=== PATIENT | male | born 1985 | race African-American/Black ===

== ENCOUNTER 2018-10-19 17:30 | Emergency (ER) | payer MEDICAID, MEDICARE ==
[~2018-10-19] VITALS: Ht 188 cm; Wt 81.6 kg
[2018-10-19 19:06] LABS: Basophils # (auto) 0.1 uL; Basophils % (auto) 1.1 % (0.0-2.0); Eosinophils # (auto) 0 uL; Eosinophils % (auto) 0.6 % (0.0-7.0); Hematocrit 48.3 % (41.0-53.0); Lymphocytes # (auto) 1.9 uL; Lymphocytes % (auto) 27.4 % (10.0-50.0); Mean Corpuscular Hemoglobin 29.2 pg (28.0-32.0); Mean Corpuscular Hgb Conc. 33.2 g/dL (32.0-36.0); Mean Corpuscular Volume 87.9 fL (80.0-100.0); Monocytes # (auto) 0.4 uL; Monocytes % (auto) 5.8 % (0.0-12.0); Neutrophils # (auto) 4.5 uL; Neutrophils % (auto) 65.1 % (37.0-80.0); Platelet Count (auto) 210 10^3/uL (140-450); White Blood Cell 6.9 10^3/uL (4.4-10.8)
[2018-10-19 19:19] LABS: Alanine Aminotransferase 13 U/L (16-61); Anion Gap 6 (5-15); Aspartate Aminotransferase 8 U/L (15-37); BUN/Creatinine Ratio 10.8; Blood Urea Nitrogen 15 mg/dL (7-18); Calcium 8.8 mg/dL (8.5-10.1); Carbon Dioxide 27 mmol/L (21-32); Chloride 109 mmol/L (98-107); GFR African American 75 mL/min; GFR Non-African American 62 mL/min; Glucose 92 mg/dL (74-106); Potassium 3.7 mmol/L (3.5-5.1); Sodium 142 mmol/L (136-145)
[2018-10-19 19:24] LABS: Alkaline Phosphatase 58 U/L (45-117); Bilirubin, Total 0.6 mg/dL (0.2-1.0); Total Protein 7.8 g/dL (6.4-8.2)
[2018-10-19 19:46] VITALS: BP 125/75
== END 2018-10-19 19:59 | disposition home or self-care (01) ==
LOC: ER 17:30 → EDBD 17:30 → ER 19:58
DX: K59.01 Slow transit constipation (principal)
CPT/HCPCS: 36415; 74176; 80053; 84484; 85025

== ENCOUNTER 2022-03-09 06:29 | Inpatient (IN) | payer MEDICARE, MEDICAID ==
[~2022-03-09] VITALS: Ht 195.6 cm; Wt 77.3 kg
[2022-03-09 07:43] LABS: Basophils # (auto) 0 10 ^3/uL (0-0.2); Basophils % (auto) 0.5 % (0.0-2.0); Eosinophils # (auto) 0.1 10 ^3/uL (0-0.8); Eosinophils % (auto) 0.8 % (0.0-7.0); Hematocrit 43.7 % (41.0-53.0); Hemoglobin 14.7 g/dL (13.5-17.5); Lymphocytes # (auto) 2.7 10 ^3/uL (0.4-5.4); Lymphocytes % (auto) 36.9 % (10.0-50.0); Mean Corpuscular Hemoglobin 30.4 pg (28.0-32.0); Mean Corpuscular Hgb Conc. 33.8 g/dL (32.0-36.0); Mean Corpuscular Volume 89.9 fL (80.0-100.0); Monocytes # (auto) 0.5 10 ^3/uL (0-1.3); Monocytes % (auto) 6.4 % (0.0-12.0); Neutrophils # (auto) 4.1 10 ^3/uL (1.6-8.6); Neutrophils % (auto) 55.4 % (37.0-80.0); Nucleated Red Blood Cells % 0.1 %; Red Blood Cells 4.86 10^6/uL (4.5-5.90); Red Cell Distribution Width 14.6 % (11.8-14.3); White Blood Cell 7.3 10^3/uL (4.4-10.8)
[2022-03-09] MEDS ORDERED: FUROSEMIDE 40 MG/4 ML VIAL IV ONE (07:45)
[2022-03-09 08:03] LABS: Albumin 3.9 g/dL (3.4-5.0); Potassium 3.5 mmol/L (3.5-5.1)
[2022-03-09 08:08] VITALS: BP 106/66
[2022-03-09 08:15] LABS: Bilirubin, Total 0.6 mg/dL (0.2-1.0); Total Protein 7.2 g/dL (6.4-8.2)
[2022-03-09 08:42] LABS: Urine Bacteria NONE SEEN /hpf (None Seen); Urine Blood Negative /uL (Negative); Urine Mucus FEW (None Seen); Urine Specific Gravity 1.047 (1.001-1.035); Urine WBC 6 /hpf (0 - 3)
[2022-03-09] MEDS ORDERED: ENOXAPARIN SOD 80 MG/0.8ML SYRINGE SC ONE (09:15)
[2022-03-09] MEDS ORDERED: ATOR40TA52 PO (12:44)
[2022-03-09] MEDS ORDERED: METO25TA93 PO (12:44)
[2022-03-09] MEDS ORDERED: NITROGLYCERIN 0.4 MG SL TAB SL PRN (12:45)
[2022-03-09] MEDS ORDERED: MORPHINE SULFATE INJ 2 MG/ml SYRG IV PRN (12:45)
[2022-03-09] MEDS ORDERED: hydrALAZINE HCL 20 MG/ML VL IV PRN (13:15)
[2022-03-10] MEDS ORDERED: FUROSEMIDE 20 MG/2 ML VIAL IV SCH (10:00)
[2022-03-10] MEDS ORDERED: METOPROLOL SUCCINATE XL 50 MG TAB PO SCH (10:00)
[2022-03-10] MEDS ORDERED: ENOXAPARIN SOD 40 MG/0.4 ML SYRINGE SC SCH (10:00)
[2022-03-10] MEDS ORDERED: ATORVASTATIN 20 MG TAB PO SCH (10:00)
== END 2022-03-10 15:57 | disposition left against medical advice (07) | DRG 291 ==
LOC: ER 06:29 → TELE 12:44
PROVIDERS: ADMIT Registered Nurse; ATTEND Internal Medicine Pulmonary Disease
DX: I11.0 Hypertensive heart disease with heart failure (principal); I50.43 Acute on chronic combined systolic (congestive) and diastolic (congestive) heart failure; I24.9 Acute ischemic heart disease, unspecified; E78.5 Hyperlipidemia, unspecified; Z53.21 Procedure and treatment not carried out due to patient leaving prior to being seen by health care provider; Z86.73 Personal history of transient ischemic attack (TIA), and cerebral infarction without residual deficits; Z20.822 Contact with and (suspected) exposure to COVID-19
CPT/HCPCS: 36415; 71045; 80053; 81001; 83880; 84484; 85025; 87426; 96372; 96374; G0378

== ENCOUNTER 2022-05-22 15:06 | Inpatient (IN) | payer MEDICARE, MEDICAID ==
[~2022-05-22] VITALS: Ht 193 cm; Wt 69.4 kg
[~2022-05-22 15:06] MED LIST: ATOR40TA52 PO; METO25TA93 PO
[2022-05-22] MEDS ORDERED: FUROSEMIDE 40 MG/4 ML VIAL IV ONE (15:30)
[2022-05-22 15:50] LABS: Basophils # (auto) 0.1 10 ^3/uL (0-0.2); Eosinophils # (auto) 0.1 10 ^3/uL (0-0.8); Eosinophils % (auto) 1.2 % (0.0-7.0); Hemoglobin 16.5 g/dL (13.5-17.5); Lymphocytes # (auto) 3.4 10 ^3/uL (0.4-5.4); Lymphocytes % (auto) 44.7 % (10.0-50.0); Mean Corpuscular Hemoglobin 29.1 pg (28.0-32.0); Mean Corpuscular Hgb Conc. 32.3 g/dL (32.0-36.0); Mean Corpuscular Volume 90.1 fL (80.0-100.0); Monocytes # (auto) 0.5 10 ^3/uL (0-1.3); Monocytes % (auto) 6.6 % (0.0-12.0); Neutrophils # (auto) 3.5 10 ^3/uL (1.6-8.6); Neutrophils % (auto) 46.5 % (37.0-80.0); Nucleated Red Blood Cells % 0.3 %; Red Blood Cells 5.66 10^6/uL (4.5-5.90); Red Cell Distribution Width 14.8 % (11.8-14.3); White Blood Cell 7.5 10^3/uL (4.4-10.8)
[2022-05-22 16:12] LABS: Albumin 3.4 g/dL (3.4-5.0); Calcium 8.7 mg/dL (8.5-10.1); Potassium 4.6 mmol/L (3.5-5.1)
[2022-05-22 16:16] LABS: BUN/Creatinine Ratio 17.3; Bilirubin, Total 1.1 mg/dL (0.2-1.0); Total Protein 6.5 g/dL (6.4-8.2)
[2022-05-22] MEDS ORDERED: ENOXAPARIN SOD 80 MG/0.8ML SYRINGE SC ONE (16:30)
[2022-05-22 17:19] LABS: Urine Bacteria NONE SEEN /hpf (None Seen); Urine Blood Negative /uL (Negative); Urine Hyaline Cast FEW /lpf (0 - 2); Urine Specific Gravity 1.005 (1.001-1.035); Urine WBC <1 /hpf (0 - 3)
[2022-05-22] MEDS ORDERED: HYDROcodone-ACET 5/325MG TAB PO PRN (23:00)
[2022-05-22] MEDS ORDERED: IBUPROFEN 600 MG TAB PO PRN (23:00)
[2022-05-22] MEDS ORDERED: ONDANSETRON HCL 4 MG/2 ML VIAL IV PRN (23:00)
[2022-05-22] MEDS ORDERED: MIDODRINE HCL 10 MG TAB PO ONE (23:00)
[2022-05-22] MEDS ORDERED: DOCUSATE SOD 100 MG CAP PO PRN (23:00)
[2022-05-23] MEDS ORDERED: NITROGLYCERIN 0.4 MG SL TAB SL PRN (00:15)
[2022-05-23] MEDS ORDERED: MORPHINE SULFATE INJ 2 MG/ml SYRG IV PRN (00:15)
[2022-05-23] MEDS: SODIUM CHLOR 0.9% PF (SALINE LOCK) 10ML VIAL/SYR IV SCH ×3 (05:50→22:55)
[2022-05-23 05:55] LABS: Hematocrit 45.1 % (41.0-53.0); Hemoglobin 15.5 g/dL (13.5-17.5); Mean Corpuscular Hemoglobin 29.9 pg (28.0-32.0); Mean Corpuscular Hgb Conc. 34.3 g/dL (32.0-36.0); Mean Corpuscular Volume 87.1 fL (80.0-100.0); Red Blood Cells 5.17 10^6/uL (4.5-5.90); Red Cell Distribution Width 14.4 % (11.8-14.3)
[2022-05-23 06:14] LABS: Albumin 3.3 g/dL (3.4-5.0); BUN/Creatinine Ratio 20.5; Potassium 3.1 mmol/L (3.5-5.1)
[2022-05-23 06:17] LABS: Bilirubin, Total 0.7 mg/dL (0.2-1.0); Total Protein 6.4 g/dL (6.4-8.2)
[2022-05-23 06:19] LABS: Band Neutrophils % (manual) 0; Basophils % (manual) 0 (0.0-2.0); Blast Cells 0; Eosinophils % (manual) 0 (0-7); Metamyelocytes % 0; Myelocytes % 0; Promyelocytes % 0; Reactive Lymphocytes 0
[2022-05-23 07:05] LABS: Lymphocytes % (manual) 67 (10.0-50.0); Monocytes % (manual) 2 (0-12)
[2022-05-23] MEDS ORDERED: CARVEDILOL 3.125 MG TAB PO SCH (10:00)
[2022-05-23] MEDS: METOPROLOL TARTRATE 25 MG TAB PO SCH ×3 (10:00→22:00)
[2022-05-23] MEDS ORDERED: METOPROLOL TARTRATE 1MG/1ML-5ML VIAL IV PRN (10:00)
[2022-05-23] MEDS ORDERED: FUROSEMIDE 40 MG/4 ML VIAL IV SCH (10:00)
[2022-05-23] MEDS ORDERED: POTASSIUM EFFERVESENT TAB 25 MEQ PO ONE (10:45)
[2022-05-23] MEDS: ASPirin 81 mg TAB PO SCH (11:06)
[2022-05-23] MEDS: FAMOTIDINE (10MG/ML) 2ML VL IV SCH ×2 (11:06→22:55)
[2022-05-23] MEDS: SPIRONOLACTONE 25 MG TAB PO SCH (11:13)
[2022-05-23] MEDS: HEPARIN SODIUM (PORCINE) 5000 UNITS/ML 1ML VIAL SC SCH ×2 (11:14→23:05)
[2022-05-23 12:52] VITALS: BP 104/56
[2022-05-23] MEDS ORDERED: LISI-275 PO (13:09)
[2022-05-23] MEDS ORDERED: APIX5TAB PO (13:09)
[2022-05-23] MEDS: FUROSEMIDE 40 MG/4 ML VIAL IV SCH (15:51)
[2022-05-23 17:00] VITALS: BP 111/77
[2022-05-23 22:00] VITALS: BP 95/66
[2022-05-23] MEDS: ATORVASTATIN 20 MG TAB PO SCH (22:55)
[2022-05-24] MEDS: FUROSEMIDE 40 MG/4 ML VIAL IV SCH ×2 (05:45→18:32)
[2022-05-24 06:02] VITALS: BP 102/61
[2022-05-24] MEDS: SODIUM CHLOR 0.9% PF (SALINE LOCK) 10ML VIAL/SYR IV SCH ×3 (06:09→22:25)
[2022-05-24 09:00] VITALS: BP 94/58
[2022-05-24] MEDS: METOPROLOL TARTRATE 25 MG TAB PO SCH ×2 (10:00→22:00)
[2022-05-24] MEDS: SPIRONOLACTONE 25 MG TAB PO SCH (10:00)
[2022-05-24] MEDS: ASPirin 81 mg TAB PO SCH (11:19)
[2022-05-24] MEDS: HEPARIN SODIUM (PORCINE) 5000 UNITS/ML 1ML VIAL SC SCH ×2 (11:21→22:23)
[2022-05-24] MEDS: FAMOTIDINE (10MG/ML) 2ML VL IV SCH ×2 (11:22→22:24)
[2022-05-24] MEDS ORDERED: POTASSIUM EFFERVESENT TAB 25 MEQ PO ONE (12:14)
[2022-05-24 13:00] VITALS: BP 95/70
[2022-05-24 15:44] LABS: Basophils # (auto) 0 10 ^3/uL (0-0.2); Basophils % (auto) 0.5 % (0.0-2.0); Eosinophils # (auto) 0.1 10 ^3/uL (0-0.8); Eosinophils % (auto) 2.4 % (0.0-7.0); Hemoglobin 16.2 g/dL (13.5-17.5); Lymphocytes # (auto) 3.1 10 ^3/uL (0.4-5.4); Lymphocytes % (auto) 50.9 % (10.0-50.0); Mean Corpuscular Hemoglobin 29.3 pg (28.0-32.0); Mean Corpuscular Hgb Conc. 33.8 g/dL (32.0-36.0); Mean Corpuscular Volume 86.8 fL (80.0-100.0); Monocytes # (auto) 0.4 10 ^3/uL (0-1.3); Monocytes % (auto) 5.8 % (0.0-12.0); Neutrophils # (auto) 2.5 10 ^3/uL (1.6-8.6); Neutrophils % (auto) 40.4 % (37.0-80.0); Nucleated Red Blood Cells % 0.2 %; Red Blood Cells 5.52 10^6/uL (4.5-5.90); Red Cell Distribution Width 14.4 % (11.8-14.3); White Blood Cell 6.1 10^3/uL (4.4-10.8)
[2022-05-24 15:51] LABS: Albumin 3.6 g/dL (3.4-5.0); Calcium 9.5 mg/dL (8.5-10.1); Potassium 3.2 mmol/L (3.5-5.1)
[2022-05-24 15:53] LABS: BUN/Creatinine Ratio 18.1
[2022-05-24 15:55] LABS: Bilirubin, Total 0.8 mg/dL (0.2-1.0); Total Protein 7.3 g/dL (6.4-8.2)
[2022-05-24 17:00] VITALS: BP 110/73
[2022-05-24 22:00] VITALS: BP 99/60
[2022-05-24] MEDS: ATORVASTATIN 20 MG TAB PO SCH (22:25)
[2022-05-25 05:00] VITALS: BP 16/93
[2022-05-25] MEDS: FUROSEMIDE 40 MG/4 ML VIAL IV SCH ×3 (05:17→18:19)
[2022-05-25] MEDS: SODIUM CHLOR 0.9% PF (SALINE LOCK) 10ML VIAL/SYR IV SCH ×3 (05:17→22:37)
[2022-05-25 07:58] LABS: Hematocrit 44.7 % (41.0-53.0); Hemoglobin 15.4 g/dL (13.5-17.5); Mean Corpuscular Hemoglobin 29.9 pg (28.0-32.0); Mean Corpuscular Hgb Conc. 34.4 g/dL (32.0-36.0); Red Blood Cells 5.14 10^6/uL (4.5-5.90); Red Cell Distribution Width 14.7 % (11.8-14.3); White Blood Cell 6.4 10^3/uL (4.4-10.8)
[2022-05-25 08:23] LABS: Basophils % (manual) 0 (0.0-2.0); Blast Cells 0; Metamyelocytes % 0; Monocytes % (manual) 0 (0-12); Myelocytes % 0; Promyelocytes % 0; Reactive Lymphocytes 0
[2022-05-25] MEDS ORDERED: POTASSIUM EFFERVESENT TAB 25 MEQ PO ONE (08:45)
[2022-05-25 08:46] LABS: Albumin 3.4 g/dL (3.4-5.0); BUN/Creatinine Ratio 18.1; Bilirubin, Total 0.6 mg/dL (0.2-1.0); Calcium 8.6 mg/dL (8.5-10.1); Total Protein 6.6 g/dL (6.4-8.2)
[2022-05-25 08:55] LABS: Hepatitis B Surface Antibody Positive (Negative)
[2022-05-25 09:00] VITALS: BP 101/69
[2022-05-25] MEDS: METOPROLOL TARTRATE 25 MG TAB PO SCH ×2 (10:00→22:40)
[2022-05-25] MEDS: FAMOTIDINE (10MG/ML) 2ML VL IV SCH ×2 (10:37→22:36)
[2022-05-25] MEDS: SPIRONOLACTONE 25 MG TAB PO SCH (10:38)
[2022-05-25] MEDS: ASPirin 81 mg TAB PO SCH (10:38)
[2022-05-25] MEDS: HEPARIN SODIUM (PORCINE) 5000 UNITS/ML 1ML VIAL SC SCH ×2 (10:42→22:42)
[2022-05-25] MEDS: POTASSIUM EFFERVESENT TAB 25 MEQ PO SCH (10:43)
[2022-05-25] MEDS ORDERED: FUROSEMIDE 40 MG/4 ML VIAL IV ONE (11:30)
[2022-05-25 12:27] LABS: Band Neutrophils % (manual) 1; Eosinophils % (manual) 1 (0-7); Lymphocytes % (manual) 67 (10.0-50.0)
[2022-05-25 13:00] VITALS: BP 100/68
[2022-05-25] MEDS ORDERED: PANTOPRAZOLE 40 MG/10 ML VIAL INJ IV ONE (13:15)
[2022-05-25] MEDS ORDERED: FUROSEMIDE 20 MG/2 ML VIAL IV ONE (13:30)
[2022-05-25 14:51] LABS: Magnesium 2.2 mg/dL (1.6-2.6)
[2022-05-25 17:00] VITALS: BP 94/73
[2022-05-25 17:50] LABS: Alcohol, Urine < 3.0 mg/dL (0-10); Amphetamine Screen, Urine NEGATIVE (NEGATIVE); Barbiturate Scree,Urine NEGATIVE (NEGATIVE); Benzodiazephine Screen, Urine NEGATIVE (NEGATIVE); Cannabinoid Screen, Urine POSITIVE (NEGATIVE); Cocaine Screen, Urine NEGATIVE (NEGATIVE); Opiate Scree,Urine NEGATIVE (NEGATIVE); Phencyclidine Screen, Urine NEGATIVE (NEGATIVE)
[2022-05-25 20:10] VITALS: BP 98/68
[2022-05-25 22:00] VITALS: BP 98/68
[2022-05-25] MEDS: ATORVASTATIN 20 MG TAB PO SCH (22:36)
[2022-05-25] MEDS: LACTULOSE 20Gm/30ML SOLN PO SCH (22:36)
[2022-05-26 05:00] VITALS: BP 99/58
[2022-05-26 06:20] LABS: Basophils # (auto) 0.1 10 ^3/uL (0-0.2); Basophils % (auto) 0.8 % (0.0-2.0); Eosinophils # (auto) 0.1 10 ^3/uL (0-0.8); Eosinophils % (auto) 1.5 % (0.0-7.0); Hematocrit 46.8 % (41.0-53.0); Lymphocytes # (auto) 3.7 10 ^3/uL (0.4-5.4); Mean Corpuscular Hemoglobin 29.7 pg (28.0-32.0); Mean Corpuscular Hgb Conc. 34.2 g/dL (32.0-36.0); Mean Corpuscular Volume 86.6 fL (80.0-100.0); Monocytes # (auto) 0.4 10 ^3/uL (0-1.3); Monocytes % (auto) 5.8 % (0.0-12.0); Neutrophils % (auto) 40.9 % (37.0-80.0); Nucleated Red Blood Cells % 0.2 %; Red Blood Cells 5.41 10^6/uL (4.5-5.90); Red Cell Distribution Width 14.4 % (11.8-14.3); White Blood Cell 7.2 10^3/uL (4.4-10.8)
[2022-05-26] MEDS: FUROSEMIDE 40 MG/4 ML VIAL IV SCH (06:31)
[2022-05-26] MEDS: SODIUM CHLOR 0.9% PF (SALINE LOCK) 10ML VIAL/SYR IV SCH (06:31)
[2022-05-26 08:00] VITALS: BP 93/69
[2022-05-26 08:47] LABS: BUN/Creatinine Ratio 19.3 (10.0-20.0); Calcium 9.1 mg/dL (8.5-10.1); Potassium 3.4 mmol/L (3.5-5.1)
[2022-05-26 08:48] VITALS: BP 93/69
[2022-05-26] MEDS ORDERED: POTASSIUM EFFERVESENT TAB 25 MEQ PO ONE (09:45)
[2022-05-26] MEDS ORDERED: PANTOPRAZOLE 40 MG/10 ML VIAL INJ IV SCH (10:00)
[2022-05-26] MEDS ORDERED: DOBUTamine 1000MCG/ML 250 ML IV SCH (10:00)
[2022-05-26] MEDS ORDERED: CARVEDILOL 3.125 MG TAB PO SCH (10:00)
[2022-05-26] MEDS: LACTULOSE 20Gm/30ML SOLN PO SCH (10:00)
[2022-05-26] MEDS: POTASSIUM EFFERVESENT TAB 25 MEQ PO SCH (10:13)
[2022-05-26] MEDS: FAMOTIDINE (10MG/ML) 2ML VL IV SCH (10:15)
[2022-05-26] MEDS: ASPirin 81 mg TAB PO SCH (10:15)
[2022-05-26] MEDS: HEPARIN SODIUM (PORCINE) 5000 UNITS/ML 1ML VIAL SC SCH (10:16)
[2022-05-26 11:15] VITALS: BP 93/69
== END 2022-05-26 12:41 | disposition left against medical advice (07) | DRG 280 ==
LOC: ER 15:06 → TELE 05-23 00:01 → TELE-WESTW 05-23 12:11
PROVIDERS: ADMIT Nurse Practitioner Family; ATTEND Family Medicine
DX: I47.1 Supraventricular tachycardia (principal); I50.43 Acute on chronic combined systolic (congestive) and diastolic (congestive) heart failure; I21.A1 Myocardial infarction type 2; N17.0 Acute kidney failure with tubular necrosis; J96.01 Acute respiratory failure with hypoxia; E11.22 Type 2 diabetes mellitus with diabetic chronic kidney disease; E11.65 Type 2 diabetes mellitus with hyperglycemia; E87.6 Hypokalemia; K59.00 Constipation, unspecified; Z53.29 Procedure and treatment not carried out because of patient's decision for other reasons; N18.30 Chronic kidney disease, stage 3 unspecified; I25.2 Old myocardial infarction; Z87.891 Personal history of nicotine dependence; Z86.73 Personal history of transient ischemic attack (TIA), and cerebral infarction without residual deficits; Z79.82 Long term (current) use of aspirin; N18.31 Chronic kidney disease, stage 3a
CPT/HCPCS: 36415; 71045; 74176; 76775; 78582; 80048; 80053; 80061; 80307; 81001; 83036; 83690; 83735; 83880; 84132; 84443; 84484; 85007; 85025; 85027; 85379; 86703; 86706; 86803; 87081; 87340; 87426; 93005; 93306; 93970; 96372; 96374; 99291; C9113; G0378; J3490

== ENCOUNTER 2022-06-07 04:30 | Inpatient (IN) | payer MEDICARE, MEDICAID ==
[2022-06-07] VITALS (8 sets, daily range): BP systolic 86–126; BP diastolic 31–78
[~2022-06-07] VITALS: Ht 195.6 cm; Wt 74.4 kg
[~2022-06-07 04:30] MED LIST changes: +APIX5TAB PO; +LISI-275 PO
[2022-06-07] MEDS ORDERED: hydrALAZINE HCL 20 MG/ML VL IV ONE (05:00)
[2022-06-07] MEDS ORDERED: ONDANSETRON HCL 4 MG/2 ML VIAL IV ONE (05:00)
[2022-06-07] MEDS ORDERED: MORPHINE SULFATE 4 MG/ML SYR/VIAL IV ONE ×2 (05:00→09:00)
[2022-06-07 05:44] LABS: Basophils # (auto) 0.1 10 ^3/uL (0-0.2); Eosinophils # (auto) 0.1 10 ^3/uL (0-0.8); Eosinophils % (auto) 0.8 % (0.0-7.0); Hematocrit 42.2 % (41.0-53.0); Hemoglobin 14.3 g/dL (13.5-17.5); Lymphocytes # (auto) 3.6 10 ^3/uL (0.4-5.4); Lymphocytes % (auto) 45.4 % (10.0-50.0); Mean Corpuscular Hemoglobin 30.1 pg (28.0-32.0); Mean Corpuscular Hgb Conc. 33.9 g/dL (32.0-36.0); Mean Corpuscular Volume 88.6 fL (80.0-100.0); Monocytes # (auto) 0.5 10 ^3/uL (0-1.3); Monocytes % (auto) 6.3 % (0.0-12.0); Neutrophils # (auto) 3.7 10 ^3/uL (1.6-8.6); Neutrophils % (auto) 46.5 % (37.0-80.0); Nucleated Red Blood Cells % 0.1 %; Red Blood Cells 4.76 10^6/uL (4.5-5.90); Red Cell Distribution Width 15.1 % (11.8-14.3)
[2022-06-07 06:03] LABS: Albumin 3.5 g/dL (3.4-5.0); Calcium 8.9 mg/dL (8.5-10.1); Magnesium 2.5 mg/dL (1.6-2.6); Potassium 3.9 mmol/L (3.5-5.1)
[2022-06-07 06:09] LABS: BUN/Creatinine Ratio 13.8 (10.0-20.0); Bilirubin, Total 1.2 mg/dL (0.2-1.0); Total Protein 6.3 g/dL (6.4-8.2)
[2022-06-07] MEDS ORDERED: SODIUM CHLORIDE 0.9% 1,000 ML IV ONE (06:45)
[2022-06-07] MEDS ORDERED: PIPERACILLIN-TAZOB 3.375GM 100 ML IV ONE (09:45)
[2022-06-07] MEDS ORDERED: DOBUTamine 1000MCG/ML 250 ML IV ONE ×2 (15:25→15:30)
[2022-06-07 15:30] LABS: Urine Bacteria NONE SEEN /hpf (None Seen); Urine Blood Negative /uL (Negative); Urine Mucus FEW (None Seen); Urine Specific Gravity 1.025 (1.001-1.035); Urine WBC 2 /hpf (0 - 3)
[2022-06-07] MEDS ORDERED: METOPROLOL TARTRATE 1MG/1ML-5ML VIAL IV ONE ×2 (15:30→15:45)
[2022-06-07 15:42] LABS: Amphetamine Screen, Urine POSITIVE (NEGATIVE); Barbiturate Scree,Urine NEGATIVE (NEGATIVE); Benzodiazephine Screen, Urine NEGATIVE (NEGATIVE); Cannabinoid Screen, Urine POSITIVE (NEGATIVE); Cocaine Screen, Urine NEGATIVE (NEGATIVE)
[2022-06-07] MEDS ORDERED: FUROSEMIDE 40 MG/4 ML VIAL IV ONE (15:45)
[2022-06-07] MEDS ORDERED: PHENYLEPHRINE IV 250 ML IV ONE ×3 (15:45→19:29)
[2022-06-07] MEDS ORDERED: LORazepam 2MG/ML-1ML VIAL ONE (15:48)
[2022-06-07 15:50] LABS: Opiate Scree,Urine POSITIVE (NEGATIVE); Phencyclidine Screen, Urine NEGATIVE (NEGATIVE)
[2022-06-07] MEDS ORDERED: AMIODARONE HCL 150 MG in D5W 5% 100 ML IV ONE (16:00)
[2022-06-07] MEDS ORDERED: LORazepam 2MG/ML-1ML VIAL IV ONE (16:00)
[2022-06-07] MEDS ORDERED: MILRINONE 20MG/100ML 100 ML IV ONE (16:10)
[2022-06-07] MEDS ORDERED: NOREPINEPHRINE 8 MG/250ML KIT 250 ML IV ONE (16:18)
[2022-06-07] MEDS ORDERED: NOREPINEPHRINE 8 MG/250ML KIT 250 ML IV SCH ×3 (16:30→19:45)
[2022-06-07] MEDS ORDERED: MILRINONE 20MG/100ML 100 ML IV SCH (16:30)
[2022-06-07] MEDS ORDERED: HALOPERIDOL LACTATE 5 MG/ML INJ VIAL ONE (16:39)
[2022-06-07] MEDS ORDERED: SUCCINYLCHOLINE CHLORIDE 20 MG/ML 10ML VIAL IV ONE ×2 (16:39→16:45)
[2022-06-07] MEDS ORDERED: ETOMIDATE (2MG/ML) 20ML VIAL IV ONE ×3 (16:39→16:45)
[2022-06-07] MEDS ORDERED: ROCURONIUM 10MG/ML 10ML VIAL IV ONE ×2 (16:39→16:45)
[2022-06-07] MEDS ORDERED: fentaNYL Drip 2500mCg/250mlNS 250 ML IV ONE (16:40)
[2022-06-07] MEDS ORDERED: HALOPERIDOL LACTATE 5 MG/ML INJ VIAL IM ONE (16:45)
[2022-06-07] MEDS: fentaNYL Drip 2500mCg/250mlNS 250 ML IV SCH (16:51)
[2022-06-07] MEDS ORDERED: MIDAZOLAM DRIP 50 mg/50mL 50 ML IV ONE (17:06)
[2022-06-07] MEDS: MIDAZOLAM DRIP 50 mg/50mL 50 ML IV SCH (17:09)
[2022-06-07] MEDS: FUROSEMIDE INJECTION 100 MG in D5W 5% 100 ML IV SCH (17:49)
[2022-06-07] MEDS ORDERED: MORPHINE SULFATE INJ 2 MG/ml SYRG IV PRN (19:30)
[2022-06-07] MEDS ORDERED: ONDANSETRON HCL 4 MG/2 ML VIAL IV PRN (19:30)
[2022-06-07] MEDS ORDERED: NITROGLYCERIN 0.4 MG SL TAB SL PRN (19:30)
[2022-06-07] MEDS ORDERED: PHENYLEPHRINE IV 250 ML IV SCH ×2 (19:45)
[2022-06-07] MEDS: MILRINONE 20MG/100ML 100 ML IV SCH (19:52)
[2022-06-07] MEDS: ACETAMINOPHEN 325 MG TAB PO PRN (20:57)
[2022-06-07] MEDS ORDERED: APIXABAN 5 MG TAB PO SCH (22:00)
[2022-06-07] MEDS: SODIUM CHLOR 0.9% PF (SALINE LOCK) 10ML VIAL/SYR IV SCH (22:02)
[2022-06-08] VITALS (101 sets, daily range): BP systolic 91–125; BP diastolic 43–82
[2022-06-08] MEDS ORDERED: FUROSEMIDE INJECTION 10 ML ONE (01:08)
[2022-06-08] MEDS: FUROSEMIDE INJECTION 100 MG in D5W 5% 100 ML IV SCH ×2 (03:30→11:49)
[2022-06-08] MEDS: MILRINONE 20MG/100ML 100 ML IV SCH ×2 (03:53→16:55)
[2022-06-08 04:42] LABS: Basophils # (auto) 0.2 10 ^3/uL (0-0.2); Basophils % (auto) 1.5 % (0.0-2.0); Eosinophils # (auto) 0 10 ^3/uL (0-0.8); Eosinophils % (auto) 0.4 % (0.0-7.0); Hematocrit 43.5 % (41.0-53.0); Hemoglobin 14.7 g/dL (13.5-17.5); Lymphocytes # (auto) 3.4 10 ^3/uL (0.4-5.4); Lymphocytes % (auto) 29.3 % (10.0-50.0); Mean Corpuscular Hemoglobin 30.1 pg (28.0-32.0); Mean Corpuscular Hgb Conc. 33.7 g/dL (32.0-36.0); Mean Corpuscular Volume 89.3 fL (80.0-100.0); Monocytes # (auto) 1.2 10 ^3/uL (0-1.3); Neutrophils # (auto) 6.8 10 ^3/uL (1.6-8.6); Neutrophils % (auto) 58.8 % (37.0-80.0); Nucleated Red Blood Cells % 0.1 %; Red Blood Cells 4.87 10^6/uL (4.5-5.90); Red Cell Distribution Width 14.8 % (11.8-14.3); White Blood Cell 11.5 10^3/uL (4.4-10.8)
[2022-06-08 04:52] LABS: Calcium 8.3 mg/dL (8.5-10.1); Potassium 4.1 mmol/L (3.5-5.1)
[2022-06-08 04:58] LABS: Albumin 3.2 g/dL (3.4-5.0); BUN/Creatinine Ratio 13.6 (10.0-20.0); Bilirubin, Total 0.9 mg/dL (0.2-1.0); Magnesium 2.5 mg/dL (1.6-2.6); Total Protein 6.4 g/dL (6.4-8.2)
[2022-06-08] MEDS: MIDAZOLAM DRIP 50 mg/50mL 50 ML IV SCH ×2 (05:53→16:01)
[2022-06-08] MEDS: SODIUM CHLOR 0.9% PF (SALINE LOCK) 10ML VIAL/SYR IV SCH ×3 (06:00→22:00)
[2022-06-08] MEDS: ACETAMINOPHEN 325 MG TAB PO PRN ×2 (07:46→17:06)
[2022-06-08] MEDS ORDERED: PROPOFOL 100 ML IV ONE (08:07)
[2022-06-08] MEDS: PROPOFOL 100 ML IV SCH (08:20)
[2022-06-08] MEDS: PHENYLEPHRINE INJ 80 MG in SODIUM CHL 0.9% 242 ML IV SCH (09:56)
[2022-06-08] MEDS: NOREPINEPHRINE BITARTRATE 32 MG in SODIUM CHL 0.9% 218 ML IV SCH (10:00)
[2022-06-08] MEDS ORDERED: ENOXAPARIN SOD 40 MG/0.4 ML SYRINGE SC SCH (10:00)
[2022-06-08] MEDS: ATORVASTATIN 20 MG TAB PO SCH (10:01)
[2022-06-08] MEDS ORDERED: PANTOPRAZOLE 40 MG/10 ML VIAL INJ IV ONE (11:45)
[2022-06-08] MEDS ORDERED: AMIODARONE HCL 200 MG TAB PO ONE (11:45)
[2022-06-08 13:39] LABS: Potassium 3.7 mmol/L (3.5-5.1)
[2022-06-08 13:42] LABS: Magnesium 2.2 mg/dL (1.6-2.6)
[2022-06-08 14:10] LABS: INR 1.33 (0.9-1.15)
[2022-06-08] MEDS ORDERED: LIDOCAINE 1% (LOCAL ANESTH.) PF 5ml SDV ID ONE (16:00)
[2022-06-08] MEDS: fentaNYL Drip 2500mCg/250mlNS 250 ML IV SCH (16:45)
[2022-06-08] MEDS: ENOXAPARIN SOD 40 MG/0.4 ML SYRINGE SC SCH (17:02)
[2022-06-08] MEDS: FUROSEMIDE 40 MG/4 ML VIAL IV SCH (17:06)
[2022-06-08] MEDS: LINEZOLID 600MG/300ML 300 ML IV SCH (22:00)
[2022-06-08] MEDS: AMIODARONE HCL 200 MG TAB PO SCH (22:00)
[2022-06-08] MEDS: CEFEPIME 1GM/ 50ML 50 ML IV SCH (23:00)
[2022-06-09] VITALS (108 sets, daily range): BP systolic 88–122; BP diastolic 48–72
[2022-06-09 04:37] LABS: Basophils # (auto) 0.1 10 ^3/uL (0-0.2); Basophils % (auto) 0.8 % (0.0-2.0); Eosinophils # (auto) 0 10 ^3/uL (0-0.8); Eosinophils % (auto) 0.4 % (0.0-7.0); Hematocrit 39.8 % (41.0-53.0); Hemoglobin 13.7 g/dL (13.5-17.5); Lymphocytes # (auto) 1.2 10 ^3/uL (0.4-5.4); Lymphocytes % (auto) 13.9 % (10.0-50.0); Mean Corpuscular Hgb Conc. 34.4 g/dL (32.0-36.0); Monocytes # (auto) 0.7 10 ^3/uL (0-1.3); Monocytes % (auto) 8.4 % (0.0-12.0); Neutrophils # (auto) 6.4 10 ^3/uL (1.6-8.6); Neutrophils % (auto) 76.5 % (37.0-80.0); Red Blood Cells 4.57 10^6/uL (4.5-5.90); Red Cell Distribution Width 14.6 % (11.8-14.3); White Blood Cell 8.3 10^3/uL (4.4-10.8)
[2022-06-09 04:52] LABS: BUN/Creatinine Ratio 15.3 (10.0-20.0); Calcium 8.1 mg/dL (8.5-10.1); Potassium 3.6 mmol/L (3.5-5.1)
[2022-06-09] MEDS: FUROSEMIDE 40 MG/4 ML VIAL IV SCH ×2 (06:00→17:52)
[2022-06-09] MEDS: SODIUM CHLOR 0.9% PF (SALINE LOCK) 10ML VIAL/SYR IV SCH ×3 (06:00→22:00)
[2022-06-09] MEDS: NOREPINEPHRINE BITARTRATE 32 MG in SODIUM CHL 0.9% 218 ML IV SCH ×2 (08:15→15:52)
[2022-06-09] MEDS: PHENYLEPHRINE INJ 80 MG in SODIUM CHL 0.9% 242 ML IV SCH (08:15)
[2022-06-09] MEDS: CEFEPIME 1GM/ 50ML 50 ML IV SCH ×2 (09:05→22:05)
[2022-06-09] MEDS: ENOXAPARIN SOD 40 MG/0.4 ML SYRINGE SC SCH (09:06)
[2022-06-09] MEDS: LINEZOLID 600MG/300ML 300 ML IV SCH ×2 (09:06→22:00)
[2022-06-09] MEDS: PANTOPRAZOLE 40 MG/10 ML VIAL INJ IV SCH (09:06)
[2022-06-09] MEDS: AMIODARONE HCL 200 MG TAB PO SCH ×2 (09:07→22:01)
[2022-06-09] MEDS: ATORVASTATIN 20 MG TAB PO SCH (09:07)
[2022-06-09] MEDS: MILRINONE 20MG/100ML 100 ML IV SCH (09:34)
[2022-06-09] MEDS: ACETAMINOPHEN 325 MG TAB PO PRN (09:50)
[2022-06-09] MEDS ORDERED: Jevity 1.2 Cal/Fiber 1 Liter GT SCH (13:00)
[2022-06-09] MEDS: MIDAZOLAM DRIP 50 mg/50mL 50 ML IV SCH ×3 (15:49→21:04)
[2022-06-09] MEDS: PROPOFOL 100 ML IV SCH (15:51)
[2022-06-09] MEDS: fentaNYL Drip 2500mCg/250mlNS 250 ML IV SCH (16:04)
[2022-06-09] MEDS ORDERED: FUROSEMIDE 40 MG/4 ML VIAL IV ONE (19:30)
[2022-06-10] VITALS (108 sets, daily range): BP systolic 79–113; BP diastolic 48–76
[2022-06-10] MEDS: ACETAMINOPHEN 325 MG TAB PO PRN ×3 (02:17→17:14)
[2022-06-10 04:29] LABS: Basophils # (auto) 0 10 ^3/uL (0-0.2); Basophils % (auto) 0.4 % (0.0-2.0); Eosinophils # (auto) 0.1 10 ^3/uL (0-0.8); Hematocrit 34.9 % (41.0-53.0); Hemoglobin 12.6 g/dL (13.5-17.5); Lymphocytes # (auto) 1.8 10 ^3/uL (0.4-5.4); Lymphocytes % (auto) 29.2 % (10.0-50.0); Mean Corpuscular Hemoglobin 30.8 pg (28.0-32.0); Mean Corpuscular Volume 85.5 fL (80.0-100.0); Monocytes # (auto) 0.5 10 ^3/uL (0-1.3); Monocytes % (auto) 8.3 % (0.0-12.0); Neutrophils # (auto) 3.7 10 ^3/uL (1.6-8.6); Neutrophils % (auto) 60.1 % (37.0-80.0); Nucleated Red Blood Cells % 0.1 %; Red Blood Cells 4.08 10^6/uL (4.5-5.90); Red Cell Distribution Width 14.5 % (11.8-14.3); White Blood Cell 6.2 10^3/uL (4.4-10.8)
[2022-06-10 04:45] LABS: Albumin 2.6 g/dL (3.4-5.0); Calcium 8.3 mg/dL (8.5-10.1); Potassium 3.5 mmol/L (3.5-5.1)
[2022-06-10 04:48] LABS: BUN/Creatinine Ratio 16.9 (10.0-20.0); Bilirubin, Total 0.5 mg/dL (0.2-1.0); Total Protein 5.9 g/dL (6.4-8.2)
[2022-06-10] MEDS: SODIUM CHLOR 0.9% PF (SALINE LOCK) 10ML VIAL/SYR IV SCH ×3 (05:53→21:34)
[2022-06-10] MEDS: FUROSEMIDE 40 MG/4 ML VIAL IV SCH ×2 (05:53→17:14)
[2022-06-10] MEDS: PHENYLEPHRINE INJ 80 MG in SODIUM CHL 0.9% 242 ML IV SCH (08:15)
[2022-06-10] MEDS: PANTOPRAZOLE 40 MG/10 ML VIAL INJ IV SCH (09:28)
[2022-06-10] MEDS: LINEZOLID 600MG/300ML 300 ML IV SCH ×2 (09:29→10:19)
[2022-06-10] MEDS: ATORVASTATIN 20 MG TAB PO SCH (09:29)
[2022-06-10] MEDS: ENOXAPARIN SOD 40 MG/0.4 ML SYRINGE SC SCH (09:29)
[2022-06-10] MEDS: AMIODARONE HCL 200 MG TAB PO SCH ×2 (09:29→21:33)
[2022-06-10] MEDS: CEFEPIME 1GM/ 50ML 50 ML IV SCH ×2 (11:30→21:33)
[2022-06-10] MEDS: POTASSIUM CHL 20MEQ/100ML 100 ML IV SCH ×2 (14:08→16:40)
[2022-06-10] MEDS: MIDAZOLAM DRIP 50 mg/50mL 50 ML IV SCH ×2 (15:00→18:30)
[2022-06-10] MEDS: fentaNYL Drip 2500mCg/250mlNS 250 ML IV SCH (16:45)
[2022-06-10] MEDS: PROPOFOL 100 ML IV SCH (19:15)
[2022-06-11] VITALS (104 sets, daily range): BP systolic 85–113; BP diastolic 41–78
[2022-06-11] MEDS: MIDAZOLAM DRIP 50 mg/50mL 50 ML IV SCH ×3 (01:00→21:00)
[2022-06-11 04:21] LABS: Basophils # (auto) 0.1 10 ^3/uL (0-0.2); Basophils % (auto) 0.8 % (0.0-2.0); Eosinophils # (auto) 0.2 10 ^3/uL (0-0.8); Eosinophils % (auto) 2.4 % (0.0-7.0); Hemoglobin 12.7 g/dL (13.5-17.5); Lymphocytes % (auto) 31.1 % (10.0-50.0); Mean Corpuscular Hemoglobin 30.1 pg (28.0-32.0); Mean Corpuscular Hgb Conc. 34.2 g/dL (32.0-36.0); Mean Corpuscular Volume 88.1 fL (80.0-100.0); Monocytes # (auto) 0.5 10 ^3/uL (0-1.3); Neutrophils # (auto) 3.8 10 ^3/uL (1.6-8.6); Neutrophils % (auto) 57.7 % (37.0-80.0); White Blood Cell 6.5 10^3/uL (4.4-10.8)
[2022-06-11 04:44] LABS: BUN/Creatinine Ratio 21.7 (10.0-20.0); Calcium 8.9 mg/dL (8.5-10.1); Potassium 3.2 mmol/L (3.5-5.1)
[2022-06-11] MEDS: PROPOFOL 100 ML IV SCH ×2 (05:00→21:15)
[2022-06-11] MEDS: FUROSEMIDE 40 MG/4 ML VIAL IV SCH ×2 (06:00→18:24)
[2022-06-11] MEDS: SODIUM CHLOR 0.9% PF (SALINE LOCK) 10ML VIAL/SYR IV SCH ×3 (06:06→22:18)
[2022-06-11] MEDS: PHENYLEPHRINE INJ 80 MG in SODIUM CHL 0.9% 242 ML IV SCH (08:15)
[2022-06-11] MEDS: NOREPINEPHRINE BITARTRATE 32 MG in SODIUM CHL 0.9% 218 ML IV SCH (08:15)
[2022-06-11] MEDS: ATORVASTATIN 20 MG TAB PO SCH (09:38)
[2022-06-11] MEDS: AMIODARONE HCL 200 MG TAB PO SCH ×2 (09:39→22:19)
[2022-06-11] MEDS: PANTOPRAZOLE 40 MG/10 ML VIAL INJ IV SCH (09:40)
[2022-06-11] MEDS: CEFEPIME 1GM/ 50ML 50 ML IV SCH ×2 (09:40→22:18)
[2022-06-11] MEDS: ENOXAPARIN SOD 40 MG/0.4 ML SYRINGE SC SCH (09:40)
[2022-06-11] MEDS: POTASSIUM CHL 20MEQ/100ML 100 ML IV SCH ×2 (10:21→11:47)
[2022-06-11] MEDS: fentaNYL Drip 2500mCg/250mlNS 250 ML IV SCH (21:14)
[2022-06-12] VITALS (88 sets, daily range): BP systolic 66–121; BP diastolic 49–80
[2022-06-12 03:56] LABS: Basophils # (auto) 0 10 ^3/uL (0-0.2); Basophils % (auto) 0.8 % (0.0-2.0); Eosinophils # (auto) 0.1 10 ^3/uL (0-0.8); Eosinophils % (auto) 2.1 % (0.0-7.0); Hematocrit 39.4 % (41.0-53.0); Hemoglobin 13.3 g/dL (13.5-17.5); Lymphocytes # (auto) 1.8 10 ^3/uL (0.4-5.4); Lymphocytes % (auto) 30.6 % (10.0-50.0); Mean Corpuscular Hemoglobin 29.6 pg (28.0-32.0); Mean Corpuscular Hgb Conc. 33.8 g/dL (32.0-36.0); Mean Corpuscular Volume 87.7 fL (80.0-100.0); Monocytes # (auto) 0.5 10 ^3/uL (0-1.3); Monocytes % (auto) 8.1 % (0.0-12.0); Neutrophils # (auto) 3.5 10 ^3/uL (1.6-8.6); Neutrophils % (auto) 58.4 % (37.0-80.0); Nucleated Red Blood Cells % 0.1 %; Red Blood Cells 4.49 10^6/uL (4.5-5.90); Red Cell Distribution Width 14.8 % (11.8-14.3)
[2022-06-12 04:09] LABS: BUN/Creatinine Ratio 20.3 (10.0-20.0); Calcium 9.2 mg/dL (8.5-10.1); Potassium 3.5 mmol/L (3.5-5.1)
[2022-06-12] MEDS: PROPOFOL 100 ML IV SCH (04:29)
[2022-06-12] MEDS: SODIUM CHLOR 0.9% PF (SALINE LOCK) 10ML VIAL/SYR IV SCH ×3 (06:07→21:38)
[2022-06-12] MEDS: FUROSEMIDE 40 MG/4 ML VIAL IV SCH (06:07)
[2022-06-12] MEDS: MIDAZOLAM DRIP 50 mg/50mL 50 ML IV SCH ×2 (07:00→17:00)
[2022-06-12] MEDS: PHENYLEPHRINE INJ 80 MG in SODIUM CHL 0.9% 242 ML IV SCH (08:15)
[2022-06-12] MEDS: NOREPINEPHRINE BITARTRATE 32 MG in SODIUM CHL 0.9% 218 ML IV SCH ×2 (08:15→19:57)
[2022-06-12] MEDS: PANTOPRAZOLE 40 MG/10 ML VIAL INJ IV SCH (10:33)
[2022-06-12] MEDS: AMIODARONE HCL 200 MG TAB PO SCH ×2 (10:34→21:38)
[2022-06-12] MEDS: ENOXAPARIN SOD 40 MG/0.4 ML SYRINGE SC SCH (10:34)
[2022-06-12] MEDS: CEFEPIME 1GM/ 50ML 50 ML IV SCH ×2 (10:34→21:38)
[2022-06-12] MEDS: ATORVASTATIN 20 MG TAB PO SCH (10:34)
[2022-06-12] MEDS ORDERED: FUROSEMIDE 20 MG/2 ML VIAL ONE (13:14)
[2022-06-12] MEDS ORDERED: FUROSEMIDE 20 MG/2 ML VIAL IV ONE ×2 (13:15)
[2022-06-12] MEDS: fentaNYL Drip 2500mCg/250mlNS 250 ML IV SCH (16:45)
[2022-06-12] MEDS ORDERED: FUROSEMIDE 40 MG/4 ML VIAL IV ONE (18:00)
[2022-06-12] MEDS: ACETAMINOPHEN 325 MG TAB PO PRN (23:26)
[2022-06-13] VITALS (23 sets, daily range): BP systolic 94–118; BP diastolic 42–74
[2022-06-13] MEDS: MIDAZOLAM DRIP 50 mg/50mL 50 ML IV SCH (03:00)
[2022-06-13 04:25] LABS: Basophils # (auto) 0.1 10 ^3/uL (0-0.2); Eosinophils # (auto) 0.1 10 ^3/uL (0-0.8); Eosinophils % (auto) 1.8 % (0.0-7.0); Hematocrit 42.2 % (41.0-53.0); Hemoglobin 14.7 g/dL (13.5-17.5); Lymphocytes # (auto) 1.5 10 ^3/uL (0.4-5.4); Lymphocytes % (auto) 24.5 % (10.0-50.0); Mean Corpuscular Hemoglobin 29.9 pg (28.0-32.0); Mean Corpuscular Hgb Conc. 34.8 g/dL (32.0-36.0); Mean Corpuscular Volume 85.9 fL (80.0-100.0); Monocytes # (auto) 0.5 10 ^3/uL (0-1.3); Monocytes % (auto) 7.6 % (0.0-12.0); Neutrophils % (auto) 64.1 % (37.0-80.0); Nucleated Red Blood Cells % 0.1 %; Red Blood Cells 4.91 10^6/uL (4.5-5.90); Red Cell Distribution Width 14.7 % (11.8-14.3); White Blood Cell 6.3 10^3/uL (4.4-10.8)
[2022-06-13 04:51] LABS: BUN/Creatinine Ratio 20.3 (10.0-20.0); Calcium 9.1 mg/dL (8.5-10.1)
[2022-06-13] MEDS: SODIUM CHLOR 0.9% PF (SALINE LOCK) 10ML VIAL/SYR IV SCH ×3 (05:24→21:52)
[2022-06-13] MEDS ORDERED: POTASSIUM CHL 20MEQ/100ML 100 ML IV ONE (05:45)
[2022-06-13] MEDS: PHENYLEPHRINE INJ 80 MG in SODIUM CHL 0.9% 242 ML IV SCH (08:15)
[2022-06-13] MEDS: PANTOPRAZOLE 40 MG/10 ML VIAL INJ IV SCH (09:34)
[2022-06-13] MEDS: AMIODARONE HCL 200 MG TAB PO SCH ×2 (09:34→21:53)
[2022-06-13] MEDS: ATORVASTATIN 20 MG TAB PO SCH (09:34)
[2022-06-13] MEDS: ENOXAPARIN SOD 40 MG/0.4 ML SYRINGE SC SCH (09:34)
[2022-06-13] MEDS: ACETAMINOPHEN 325 MG TAB PO PRN (09:35)
[2022-06-13] MEDS: CEFEPIME 1GM/ 50ML 50 ML IV SCH ×2 (09:44→21:52)
[2022-06-13] MEDS: POTASSIUM CHL 20MEQ/100ML 100 ML IV SCH ×4 (12:11→21:52)
[2022-06-13] MEDS ORDERED: FUROSEMIDE 40 MG/4 ML VIAL IV SCH (18:00)
[2022-06-13] MEDS ORDERED: POTASSIUM CHL 20 Meq TABLET PO ONE (19:45)
[2022-06-13] MEDS ORDERED: LACTULOSE 20Gm/30ML SOLN PO ONE (19:45)
[2022-06-13] MEDS: DOCUSATE SOD 100 MG CAP PO SCH (21:53)
[2022-06-14] VITALS (7 sets, daily range): BP systolic 91–112; BP diastolic 46–65
[2022-06-14 04:20] LABS: Basophils # (auto) 0 10 ^3/uL (0-0.2); Basophils % (auto) 0.8 % (0.0-2.0); Eosinophils # (auto) 0.1 10 ^3/uL (0-0.8); Eosinophils % (auto) 2.1 % (0.0-7.0); Hematocrit 43.8 % (41.0-53.0); Hemoglobin 14.8 g/dL (13.5-17.5); Lymphocytes # (auto) 1.9 10 ^3/uL (0.4-5.4); Lymphocytes % (auto) 29.7 % (10.0-50.0); Mean Corpuscular Hemoglobin 29.8 pg (28.0-32.0); Mean Corpuscular Hgb Conc. 33.8 g/dL (32.0-36.0); Mean Corpuscular Volume 88.2 fL (80.0-100.0); Monocytes # (auto) 0.7 10 ^3/uL (0-1.3); Neutrophils # (auto) 3.6 10 ^3/uL (1.6-8.6); Neutrophils % (auto) 56.4 % (37.0-80.0); Nucleated Red Blood Cells % 0.1 %; Red Blood Cells 4.97 10^6/uL (4.5-5.90); Red Cell Distribution Width 14.5 % (11.8-14.3); White Blood Cell 6.3 10^3/uL (4.4-10.8)
[2022-06-14 04:40] LABS: BUN/Creatinine Ratio 16.3 (10.0-20.0); Calcium 9.5 mg/dL (8.5-10.1); Potassium 3.6 mmol/L (3.5-5.1)
[2022-06-14] MEDS: SODIUM CHLOR 0.9% PF (SALINE LOCK) 10ML VIAL/SYR IV SCH (05:32)
[2022-06-14] MEDS: PANTOPRAZOLE 40 MG/10 ML VIAL INJ IV SCH (10:13)
[2022-06-14] MEDS: DOCUSATE SOD 100 MG CAP PO SCH (10:13)
[2022-06-14] MEDS: ENOXAPARIN SOD 40 MG/0.4 ML SYRINGE SC SCH (10:13)
[2022-06-14] MEDS: AMIODARONE HCL 200 MG TAB PO SCH (10:14)
[2022-06-14] MEDS: ATORVASTATIN 20 MG TAB PO SCH (10:14)
== END 2022-06-14 11:45 | disposition left against medical advice (07) | DRG 870 ==
LOC: EDBD 04:30 → ER 04:30 → TELE 19:33 → ICU WEST 22:51 → TELE-WESTW 06-14 07:40
PROVIDERS: ADMIT Nurse Practitioner Family; ATTEND Internal Medicine Pulmonary Disease
PROC: 0BH17EZ Insertion of Endotracheal Airway into Trachea, Via Natural or Artificial Opening (ICD-10-PCS; 2022-06-07)
PROC: 5A1955Z Respiratory Ventilation, Greater than 96 Consecutive Hours (ICD-10-PCS; 2022-06-07)
PROC: 02HV33Z Insertion of Infusion Device into Superior Vena Cava, Percutaneous Approach (ICD-10-PCS; principal; 2022-06-09)
PROC: B548ZZA Ultrasonography of Superior Vena Cava, Guidance (ICD-10-PCS; 2022-06-09)
DX: A41.9 Sepsis, unspecified organism (principal); I50.23 Acute on chronic systolic (congestive) heart failure; J96.01 Acute respiratory failure with hypoxia; R57.0 Cardiogenic shock; R65.21 Severe sepsis with septic shock; J15.0 Pneumonia due to Klebsiella pneumoniae; I47.20 Ventricular tachycardia, unspecified; I42.8 Other cardiomyopathies; N17.9 Acute kidney failure, unspecified; I69.354 Hemiplegia and hemiparesis following cerebral infarction affecting left non-dominant side; K59.00 Constipation, unspecified; F15.10 Other stimulant abuse, uncomplicated; Z53.29 Procedure and treatment not carried out because of patient's decision for other reasons; F14.10 Cocaine abuse, uncomplicated; N18.9 Chronic kidney disease, unspecified; E87.6 Hypokalemia; Z20.822 Contact with and (suspected) exposure to COVID-19; I25.2 Old myocardial infarction; Z82.49 Family history of ischemic heart disease and other diseases of the circulatory system; Z91.199 Patient's noncompliance with other medical treatment and regimen due to unspecified reason; Z79.899 Other long term (current) drug therapy
CPT/HCPCS: 36415; 36569; 36600; 71045; 74176; 76705; 80048; 80053; 80307; 81001; 82805; 83605; 83735; 83880; 84132; 84484; 85025; 85610; 87040; 87070; 87077; 87081; 87086; 87186; 87205; 87426; 93005; 93306; 93970; 94002; 94003; 96365; 96366; 96367; 96372; 96375; 96376; 99291; 99292; C9113; G0378; J0330; J2250; J2405; J2543; J2704; J3480; J7060

== ENCOUNTER 2022-07-17 05:15 | Inpatient (IN) | payer MEDICARE, MEDICAID ==
[~2022-07-17] VITALS: Ht 195.6 cm; Wt 73.0 kg
[2022-07-17] MEDS ORDERED: methylPREDNISolone SOD SUCC 125 MG/2 ML VL IV ONE (06:30)
[2022-07-17] MEDS ORDERED: ALBUTEROL SULF 2.5 MG/0.5ML(0.5%) NEB SOLN NEB ONE (06:30)
[2022-07-17] MEDS ORDERED: IPRATROPIUM BROM 0.5 MG/2.5ML INH SOL NEB ONE (06:30)
[2022-07-17 07:01] LABS: Basophils # (auto) 0.1 10 ^3/uL (0-0.2); Eosinophils # (auto) 0.1 10 ^3/uL (0-0.8); Eosinophils % (auto) 0.8 % (0.0-7.0); Hematocrit 40.7 % (41.0-53.0); Hemoglobin 13.8 g/dL (13.5-17.5); Lymphocytes # (auto) 3.2 10 ^3/uL (0.4-5.4); Lymphocytes % (auto) 43.6 % (10.0-50.0); Mean Corpuscular Hemoglobin 29.7 pg (28.0-32.0); Mean Corpuscular Hgb Conc. 33.9 g/dL (32.0-36.0); Mean Corpuscular Volume 87.4 fL (80.0-100.0); Monocytes # (auto) 0.5 10 ^3/uL (0-1.3); Monocytes % (auto) 6.6 % (0.0-12.0); Neutrophils # (auto) 3.5 10 ^3/uL (1.6-8.6); Nucleated Red Blood Cells % 0.1 %; Red Blood Cells 4.66 10^6/uL (4.5-5.90); Red Cell Distribution Width 15.6 % (11.8-14.3); White Blood Cell 7.3 10^3/uL (4.4-10.8)
[2022-07-17 07:51] LABS: Potassium 3.4 mmol/L (3.5-5.1)
[2022-07-17 07:59] LABS: Albumin 3.4 g/dL (3.4-5.0); Bilirubin, Total 0.9 mg/dL (0.2-1.0); Calcium 9.1 mg/dL (8.5-10.1)
[2022-07-17] MEDS ORDERED: FUROSEMIDE 40 MG/4 ML VIAL IV ONE (08:00)
[2022-07-17] MEDS ORDERED: ASPI1TAB20 PO (09:28)
[2022-07-17] MEDS ORDERED: FURO1TAB31 PO (09:29)
[2022-07-17] MEDS: APIXABAN 5 MG TAB PO SCH ×2 (10:00→22:07)
[2022-07-17] MEDS: METOPROLOL SUCCINATE XL 50 MG TAB PO SCH (10:01)
[2022-07-17] MEDS: LISINOPRIL 5 MG TAB PO SCH (10:01)
[2022-07-17] MEDS ORDERED: POTASSIUM CHL 20 Meq TABLET PO ONE (10:45)
[2022-07-17 11:19] LABS: Magnesium 2.4 mg/dL (1.6-2.6)
[2022-07-17] MEDS: FUROSEMIDE 40 MG/4 ML VIAL IV SCH (18:08)
[2022-07-17] MEDS: ATORVASTATIN 20 MG TAB PO SCH (22:06)
[2022-07-18 04:51] LABS: Basophils # (auto) 0 10 ^3/uL (0-0.2); Basophils % (auto) 0.4 % (0.0-2.0); Eosinophils # (auto) 0 10 ^3/uL (0-0.8); Hematocrit 40.6 % (41.0-53.0); Hemoglobin 13.5 g/dL (13.5-17.5); Lymphocytes # (auto) 1.7 10 ^3/uL (0.4-5.4); Lymphocytes % (auto) 17.2 % (10.0-50.0); Mean Corpuscular Hemoglobin 29.2 pg (28.0-32.0); Mean Corpuscular Hgb Conc. 33.4 g/dL (32.0-36.0); Mean Corpuscular Volume 87.5 fL (80.0-100.0); Monocytes # (auto) 0.8 10 ^3/uL (0-1.3); Monocytes % (auto) 8.1 % (0.0-12.0); Neutrophils # (auto) 7.3 10 ^3/uL (1.6-8.6); Neutrophils % (auto) 74.3 % (37.0-80.0); Nucleated Red Blood Cells % 0.1 %; Red Blood Cells 4.64 10^6/uL (4.5-5.90); Red Cell Distribution Width 15.5 % (11.8-14.3); White Blood Cell 9.9 10^3/uL (4.4-10.8)
[2022-07-18 04:58] LABS: Calcium 8.5 mg/dL (8.5-10.1); Potassium 3.5 mmol/L (3.5-5.1)
[2022-07-18 05:03] LABS: BUN/Creatinine Ratio 23.2 (10.0-20.0); Bilirubin, Total 0.5 mg/dL (0.2-1.0); Total Protein 6.5 g/dL (6.4-8.2)
[2022-07-18] MEDS: FUROSEMIDE 40 MG/4 ML VIAL IV SCH ×2 (06:00→18:28)
[2022-07-18] MEDS: LISINOPRIL 5 MG TAB PO SCH (10:00)
[2022-07-18] MEDS: METOPROLOL SUCCINATE XL 50 MG TAB PO SCH (10:00)
[2022-07-18] MEDS: APIXABAN 5 MG TAB PO SCH ×2 (10:00→21:17)
[2022-07-18] MEDS ORDERED: ASPirin 81 mg TAB PO ONE (11:30)
[2022-07-18 11:31] LABS: INR 1.14 (0.9-1.15); Partial Thromboplastin Time 25.4 sec (24.6-33.4)
[2022-07-18 18:20] LABS: Sodium Urine 103 mmol/L (40-220)
[2022-07-18 18:28] VITALS: BP 95/69
[2022-07-18 18:30] LABS: Alcohol, Urine < 3.0 mg/dL (0-10); Amphetamine Screen, Urine NEGATIVE (NEGATIVE); Barbiturate Scree,Urine NEGATIVE (NEGATIVE); Benzodiazephine Screen, Urine NEGATIVE (NEGATIVE); Cannabinoid Screen, Urine POSITIVE (NEGATIVE); Cocaine Screen, Urine NEGATIVE (NEGATIVE); Creatinine, Urine 45 mg/dL (30.0-125.0); Opiate Scree,Urine NEGATIVE (NEGATIVE); Phencyclidine Screen, Urine NEGATIVE (NEGATIVE)
[2022-07-18 20:00] VITALS: BP 106/64
[2022-07-18] MEDS: ATORVASTATIN 20 MG TAB PO SCH (21:17)
[2022-07-18 22:00] VITALS: BP 99/65
[2022-07-19 05:00] VITALS: BP 100/59
[2022-07-19] MEDS: FUROSEMIDE 40 MG/4 ML VIAL IV SCH ×2 (06:11→18:29)
[2022-07-19 09:00] VITALS: BP 103/72
[2022-07-19] MEDS: METOPROLOL SUCCINATE XL 50 MG TAB PO SCH (09:32)
[2022-07-19] MEDS: APIXABAN 5 MG TAB PO SCH (09:32)
[2022-07-19] MEDS: ASPirin 81 mg TAB PO SCH (09:32)
[2022-07-19 13:00] VITALS: BP 88/50
[2022-07-19] MEDS ORDERED: OPTISON 3ml Vial for INJ IV ONE (14:01)
[2022-07-19 16:44] VITALS: BP 109/68
[2022-07-19 20:00] VITALS: BP 121/67
[2022-07-19 22:00] VITALS: BP 99/52
[2022-07-20] MEDS: ATORVASTATIN 20 MG TAB PO SCH (01:14)
[2022-07-20] MEDS: APIXABAN 5 MG TAB PO SCH ×2 (01:14→09:32)
[2022-07-20 05:00] VITALS: BP 110/66
[2022-07-20] MEDS: FUROSEMIDE 40 MG/4 ML VIAL IV SCH (05:48)
[2022-07-20 08:20] VITALS: BP 123/60
[2022-07-20 09:00] VITALS: BP 123/60
[2022-07-20] MEDS: METOPROLOL SUCCINATE XL 50 MG TAB PO SCH (09:33)
[2022-07-20] MEDS: ASPirin 81 mg TAB PO SCH (09:33)
[2022-07-20 12:48] VITALS: BP 102/72
[2022-07-20 14:46] VITALS: BP 102/75
== END 2022-07-20 16:00 | disposition home or self-care (01) | DRG 682 ==
LOC: EDBD 05:15 → ER 05:15 → EDUNIT# 05:15 → TELE 09:26 → TELE-WESTW 07-18 17:52
PROVIDERS: ADMIT Nurse Practitioner Family; ATTEND Family Medicine
DX: N17.0 Acute kidney failure with tubular necrosis (principal); I50.43 Acute on chronic combined systolic (congestive) and diastolic (congestive) heart failure; J96.01 Acute respiratory failure with hypoxia; I13.0 Hypertensive heart and chronic kidney disease with heart failure and stage 1 through stage 4 chronic kidney disease, or unspecified chronic kidney disease; E87.1 Hypo-osmolality and hyponatremia; E78.00 Pure hypercholesterolemia, unspecified; E87.6 Hypokalemia; F14.10 Cocaine abuse, uncomplicated; F15.10 Other stimulant abuse, uncomplicated; F17.210 Nicotine dependence, cigarettes, uncomplicated; I48.91 Unspecified atrial fibrillation; N18.9 Chronic kidney disease, unspecified; Z79.01 Long term (current) use of anticoagulants; Z79.899 Other long term (current) drug therapy; Z82.49 Family history of ischemic heart disease and other diseases of the circulatory system; Z86.73 Personal history of transient ischemic attack (TIA), and cerebral infarction without residual deficits; Z71.6 Tobacco abuse counseling; Z71.89 Other specified counseling; I25.2 Old myocardial infarction
CPT/HCPCS: 36415; 71045; 76775; 80053; 80307; 82306; 82570; 83735; 83880; 83970; 84100; 84156; 84300; 84484; 85025; 85379; 85610; 85730; 93005; 93306; 93970; 94640; 96374; 96375; 99291; G0378; Q9956

== ENCOUNTER 2022-07-24 05:08 | Inpatient (IN) | payer MEDICARE, MEDICAID ==
[~2022-07-24] VITALS: Ht 195.6 cm; Wt 80.0 kg
[~2022-07-24 05:08] MED LIST changes: +ASPI1TAB20 PO; +FURO1TAB31 PO
[2022-07-24 06:53] LABS: Basophils # (auto) 0.1 10 ^3/uL (0-0.2); Basophils % (auto) 0.7 % (0.0-2.0); Eosinophils # (auto) 0.1 10 ^3/uL (0-0.8); Eosinophils % (auto) 0.7 % (0.0-7.0); Hematocrit 40.3 % (41.0-53.0); Hemoglobin 13.2 g/dL (13.5-17.5); Lymphocytes # (auto) 3.4 10 ^3/uL (0.4-5.4); Lymphocytes % (auto) 33.8 % (10.0-50.0); Mean Corpuscular Hemoglobin 29.2 pg (28.0-32.0); Mean Corpuscular Hgb Conc. 32.8 g/dL (32.0-36.0); Mean Corpuscular Volume 89.2 fL (80.0-100.0); Monocytes # (auto) 0.5 10 ^3/uL (0-1.3); Monocytes % (auto) 4.9 % (0.0-12.0); Neutrophils % (auto) 59.9 % (37.0-80.0); Red Blood Cells 4.52 10^6/uL (4.5-5.90); Red Cell Distribution Width 16.1 % (11.8-14.3); White Blood Cell 10.1 10^3/uL (4.4-10.8)
[2022-07-24 07:04] LABS: INR 1.07 (0.9-1.15); Partial Thromboplastin Time 25.8 sec (24.6-33.4)
[2022-07-24 07:12] LABS: Albumin 3.1 g/dL (3.4-5.0); Calcium 8.6 mg/dL (8.5-10.1); Potassium 3.7 mmol/L (3.5-5.1)
[2022-07-24 07:15] LABS: Bilirubin, Total 0.5 mg/dL (0.2-1.0); Total Protein 6.4 g/dL (6.4-8.2)
[2022-07-24] MEDS ORDERED: FUROSEMIDE 20 MG/2 ML VIAL IV ONE (07:30)
[2022-07-24] MEDS ORDERED: IOHEXOL 350 MG/ML 100ML IJ ONE (10:16)
[2022-07-24] MEDS ORDERED: NITROGLYCERIN 0.4 MG SL TAB SL PRN (10:30)
[2022-07-24] MEDS ORDERED: ALBUTEROL SULF 2.5 MG/0.5ML(0.5%) NEB SOLN NEB PRN (10:30)
[2022-07-24] MEDS ORDERED: MORPHINE SULFATE INJ 2 MG/ml SYRG IV PRN (10:30)
[2022-07-24] MEDS ORDERED: APIXABAN 5 MG TAB PO SCH (10:34)
[2022-07-24 11:11] VITALS: BP 110/80
[2022-07-24] MEDS ORDERED: ATORVASTATIN 20 MG TAB PO SCH (22:00)
[2022-07-25] MEDS ORDERED: ASPirin-EC 81 mg tab PO SCH (10:00)
[2022-07-25] MEDS ORDERED: FUROSEMIDE 20 MG/2 ML VIAL IV SCH (10:00)
[2022-07-25] MEDS ORDERED: METOPROLOL SUCCINATE XL 50 MG TAB PO SCH (10:00)
[2022-07-25] MEDS ORDERED: LISINOPRIL 5 MG TAB PO SCH (10:00)
== END 2022-07-25 02:28 | disposition left against medical advice (07) | DRG 291 ==
LOC: EDBD 05:08 → ER 05:08 → TELE 10:24
PROVIDERS: ADMIT Nurse Practitioner Family; ATTEND Nurse Practitioner Family
DX: I11.0 Hypertensive heart disease with heart failure (principal); I26.99 Other pulmonary embolism without acute cor pulmonale; I50.23 Acute on chronic systolic (congestive) heart failure; F15.90 Other stimulant use, unspecified, uncomplicated; I25.2 Old myocardial infarction; Z79.01 Long term (current) use of anticoagulants
CPT/HCPCS: 36415; 71045; 71275; 80053; 83880; 84484; 85025; 85379; 85610; 85730; 93005; 96374; G0378